=== PATIENT | female | born 1965 | race Caucasian/White ===

== ENCOUNTER 2022-10-27 14:22 | Outpatient (AMB) | payer OTHER, SELFPAY ==
--- NOTE | 2022-10-27 14:26 | A.OFFPC_ITS ---
Vital Signs 10/27/22 14:31 Height 5 ft 7 in Weight 262 lb 6 oz BMI 41.1 BP 160/88 H Blood Pressure Location Lt brachial Position Sitting Pulse 76 Pulse Source Pulse Oximeter Pulse Oximetry (%) 95 Oxygen Delivery Method Room Air Intake Visit Reasons: New Patient/ Concerns A1C Allergies Penicillins Allergy (Verified 10/27/22 14:32) Unknown Medication List - Last Reconciled 10/27/22 by EMIL Soares No Known Home Meds Tobacco use date assessed: 10/27/22 Dental Screening Dental Screen Date: 10/27/22 Did you have a dental visit in the last 12 months?: Yes Did you have a dental problem in the last 6 months where you did not have access to dental care?: No Was dental information given to patient?: Patient has dentist HPI New Patient/ Concerns A1C HPI Details New pt is here to establish care. Pt recently went in for surgery and was told she is most likely a diabetic. A1c in office today is 7.8. Due for microalbumin, will order. Denies polyuria, polydipsia, and neuropathy. Pt denies any signs and symptoms of hypoglycemia and does know how to correct it. Will start metformin 500mg daily. Will send meter and supplies, educated pt on bid testing. Eye exam is up to date. HTN: Blood pressure is elevated today. Will start losartan-hydrochlorothiazide 50-12.5mg. Denies chest pain, shortness of breath, headache, dizziness, and blurred vision. Will also start a statin. Will order further labs. Mammo is up to date according to pt. Colonoscopy is up to date according to pt, she goes every 5 years due to family hx. [facility] Surgical History (Updated 10/27/22 @ 14:55 by EMIL Soares) History of cholecystectomy History of total left hip replacement Hx of tonsillectomy Family History Mother Substance use disorder Mental health disorder Social History Housing: House Patient Tobacco Use Status: Never used Tobacco e-Cigarette/Vaping Use: Never Used Second Hand Smoke Exposure: No service: No Current occupational status: employed Current occupation: [employer] Current occupational exposures/hazards: No Cognitive needs: No Hearing needs: No Vision needs: No Questionnaire PHQ-9 Over the last 2 weeks, how often have you been bothered by any of the following problems? 1. Little interest or pleasure in doing things: more than half the days 2. Feeling down, depressed, or hopeless: several days 3. Trouble falling or staying asleep, or sleeping too much: more than half the days 4. Feeling tired or having little energy: nearly every day 5. Poor appetite or overeating: more than half the days 6. Feeling bad about yourself - or that you are a failure or have let yourself or your family down: several days 7. Trouble concentrating on things, such as reading the newspaper or watching television: not at all 8. Moving or speaking so slowly that other people could have noticed. Or the opposite - being so fidgety or restless that you have been moving around a lot more than usual: not at all 9. Thoughts that you would be better off or of hurting yourself in some way: not at all Total score: 11 Depression Screening Interpretation: Positive 80519 - PHQ-9 Billing: Yes Source: Developed by Drs. Ever Osborn, Earline Ibarra, Flaquito Schmitz and colleagues, with an educational jessica from [employer]. Thrive Questionnaire Date Thrive assessed: 10/27/22 I am a: Patient What is your living situation today?: I have a steady place to live Within the past 12 months, did the food you bought not last and you didn't have the money to get more?: Never true Within the past 12 months, did you worry whether your food would run out before you got money to buy more?: Never true Do you have trouble paying for medicines?: No Do you have trouble getting transportation to medical appointments?: No Do you have trouble paying your heating and electricity bill?: No Do you have trouble taking care of your child, family member or friend?: No Do you have trouble with day-to-day activities such as bathing, preparing meals, shopping, managing finances, etc.?: No Are you currently unemployed and looking for a job?: No Are you interested in more education?: No Currently or been in a relationship where the following occur: no concerns reported CON-7 AMB Questionnaire CON-7 Date CON - 7 assessed: 10/27/22 Feeling nervous, anxious, or on edge: 1 = Several days Not being able to stop or control worryin = Not at all Worrying too much about different things: 0 = Not at all Trouble relaxin = Not at all Being so restless that it is hard to sit still: 0 = Not at all Becoming easily annoyed or irritable: 2 = More than half the days Feeling afraid as if something awful might happen: 0 = Not at all Total CON-7 score (0-4 normal; 5-9 mild; 10-14 moderate; 15-21 severe): 3 Source: Developed by Drs. Ever Osborn, Earline Ibarra, Flaquito Schmitz and colleagues, with an educational jessica from [employer]. CON-7 Assessment Billing CON-7 Assessment Tool: CON-7 Assessment 11719 Review of Systems Const Reports as per HPI Physical exam (Primary Care) Vital Signs: Last Vital Signs Pulse 76 10/27/22 14:31 BP 160/88 H 10/27/22 14:31 Pulse Ox 95 10/27/22 14:31 Oxygen Delivery Method Room Air 10/27/22 14:31 BMI result Body Mass Index 41.1 Tobacco/Smoking Status: Tobacco use Status Tobacco use date assessed 10/27/22 10/27/22 14:43 Patient Tobacco Use Status Never used Tobacco 10/27/22 14:43 e-Cigarette/Vaping Use Never Used 10/27/22 14:43 PHQ-9: PHQ-9 Score PHQ-9: Total score 11 10/27/22 15:45 Depression Screening Interpretation: Positive Thrive Assessment: Date of Thrive Assessment Date Thrive assessed 10/27/22 10/27/22 15:45 Currently or been in a relationship where the following occur: no concerns reported Const General: cooperative Nutritional Appearance: obese morbidly obese Orientation/consciousness: patient oriented x3 Resp Effort & Inspection: normal respiratory effort Auscultation: clear to auscultation bilaterally Cardio Rate: regular rate Rhythm: regular rhythm Heart sounds: S1 normal heart sound present and S2 normal heart sound present Neuro General: patient oriented x3 Extrem Other: bilat feet: + sensation with use of monofilament Psych Appearance: grossly normal Mental Status: mental status grossly normal Speech and movement: Normal speech and movement present Affect: normal affect Attitude: cooperative Thought process: Normal thought process present Thought content: Normal thought content present Insight: Good insight present (Psych) Judgement: Good judgement present (Psych) Results AMB Hemoglobin A1c AMB Hemoglobin A1c 7.8 % Last Edit by Santa Rodriguez CMA on 10/27/22 15: 04 Results Reviewed Results Reviewed: Laboratory Last Values Hgb A1c (Clinic) 7.8 % (4.0-6.0) H 10/27/22 14:48 Assessment and Plan Assessment & Plan (1) Elevated blood sugar: Code(s): R73.9 - Hyperglycemia, unspecified Plan: Labs ordered (2) HTN (hypertension): Code(s): I10 - Essential (primary) hypertension Plan: Starting losartan-hctz (3) Newly diagnosed diabetes: Code(s): E11.9 - Type 2 diabetes mellitus without complications Plan: Labs ordered, starting metformin Plan The patient agreed to the use of a medical record technician for this encounter. Scribed for EMIL Yen by Sil Massey medical record technician, on 10/27/2022 at 14:45 EST. Orders: Orders Comprehensive [place]. Panel Fast Today R73.9 - Hyperglycemia, unspecified Lipid Panel Today R73.9 - Hyperglycemia, unspecified TSH reflex Free T4 Today R73.9 - Hyperglycemia, unspecified Complete Blood Count Auto Diff Today R73.9 - Hyperglycemia, unspecified UA CC w/rflx Micro + Cult Today R73.9 - Hyperglycemia, unspecified Microalbumin, Random (w Creat) Today E11.9 - Type 2 diabetes mellitus without complications AMB Hemoglobin A1c Today R73.9 - Hyperglycemia, unspecified Referrals Nurse Navigator Referral E11.9 - Type 2 diabetes mellitus without complications Medications: New losartan-hydrochlorothiazide 50-12.5 mg 1 tab PO DAILY 30 tabs 3RF 30 days atorvastatin 10 mg PO BEDTIME 30 tabs 3RF 30 days metformin 500 mg PO DAILY 30 tabs 3RF 30 days Coding Level of Care Code New Pt Level 3 (86066) Diagnoses Elevated blood sugar R73.9 HTN (hypertension) I10 Newly diagnosed diabetes E11.9 Additional Codes CON-7 Assessment Billing - CON-7 Assessment Tool: CON-7 Assessment 90983 ([id number])
[2022-10-27 14:31] VITALS: BP 160/88; PULSE 76; O2SAT 95; BMI 41.1
== END 2022-10-27 16:03 | disposition home or self-care (01) ==
PROVIDERS: Visit Provider Nurse Practitioner Family
DX: E11.65 Type 2 diabetes mellitus with hyperglycemia (principal); I10 Essential (primary) hypertension
CPT/HCPCS: 83036; 99203

== ENCOUNTER 2022-11-10 11:20 | Outpatient (REF) | payer OTHER, SELFPAY ==
[2022-11-10 13:25] LABS: MANUAL DIFF FLAG NO
[2022-11-10 13:41] LABS: Appearance Urine Clear; Color Urine Yellow; Glucose Urine UA Negative (Negative); Leukocyte Esterase Urine Negative (Negative); Nitrite Urine Negative (Negative); PH 5.5 (5.0-9.0); Specific Gravity - Urine 1.015 (1.005-1.025); Urine Blood Negative (Negative); Urine Ketones Negative (Negative); Urine Protein Negative (Neg-Trace)
[2022-11-10 13:48] LABS: Basophils Percent Auto 0.4 % (0-2); Eosinophils Absolute Auto 0.2 X10*3/uL (0.0-0.4); Hematocrit 45.8 % (37.0-47.0); Hemoglobin 16.2 g/dl (12.0-16.0); Imm Gran Abs Auto 0.02 X10*3/uL (0.00-0.03); Imm Gran Pct Auto 0.3 % (0.0-0.4); Lymphocytes Percent Auto 27.8 % (20-40); Mean Corpuscular HGB Conc 35.4 g/dl (31.0-35.0); Mean Corpuscular Volume 87.6 fL (80.0-98.0); Mean Platelet Volume 10.5 fL (9.4-12.3); Monocytes Absolute Auto 0.5 X10*3/uL (0.1-1.2); Monocytes Percent Auto 6.7 % (2-11); Neutrophils Absolute Auto 4.5 x10*3/uL (2.0-8.3); Neutrophils Percent Auto 61.8 % (45-73); Platelet Count 246 X10*3/uL (160-400); Red Blood Count 5.23 X10*6/uL (4.20-5.50); Red Cell Distribution Width 12.1 % (11.0-16.0); White Blood Count 7.3 X10*3/uL (4.8-10.8)
[2022-11-10 14:10] LABS: Alanine Aminotransferase 93 U/L (0-31); Albumin Level 4.7 g/dL (3.5-5.0); Alkaline Phosphatase 75 U/L (39-117); Anion Gap 12 (12-20); Aspartate Amino Transferase 71 U/L (5-31); Bilirubin Total 1.1 mg/dL (0.0-1.0); Blood Urea Nitrogen 12 mg/dL (9-16); Calcium 10.3 mg/dL (8.4-10.2); Carbon Dioxide 27 mmol/L (22-29); Chloride 104 mmol/L (96-108); Cholesterol 152 mg/dL; Estimated Glomerular Filt Rate > 60; Glucose Fasting 155 mg/dL (60-99); HDL Cholesterol 51 mg/dL; LDL Cholesterol Calculated 78 mg/dl; Potassium 4.4 mmol/L (3.3-5.1); Sodium 139 mmol/L (135-145); Total Protein 8.3 g/dL (6.5-8.0); Triglycerides 115 mg/dL
[2022-11-10 14:26] LABS: TSH reflex Free T4 2.41 uIU/mL (0.32-4.0)
[2022-11-10 14:32] LABS: Creatinine Urine 69.51 mg/dL; Microalbumin Urine < 5.0 mg/L
== END 2022-11-10 11:21 | disposition home or self-care (01) ==
LOC: HO.HMGCLDS 11:20
PROVIDERS: PCP Nurse Practitioner Family; Visit Provider Nurse Practitioner Family
DX: E11.65 Type 2 diabetes mellitus with hyperglycemia (principal)
CPT/HCPCS: 36415; 80053; 80061; 81003; 82043; 84443; 85025

== ENCOUNTER 2022-11-22 09:05 | Outpatient (REF) | payer OTHER, SELFPAY ==
--- NOTE | ~2022-11-22 | US_ITS ---
EXAMINATION: US ABDOMEN COMPLETE CLINICAL INFORMATION: Abnormal levels of other serum enzymes. COMPARISON: None available. TECHNIQUE: Real-time imaging of the abdominal viscera. Technically limited study secondary to bowel gas. FINDINGS: PANCREAS: Normal. ABDOMINAL AORTA: The proximal, mid, and distal segments are normal in caliber. INFERIOR VENA CAVA: Visualized portions are normal. LIVER: There is mild hepatomegaly, with a longitudinal span of 17.9 cm. The liver contour is normal. There is diffuse increased liver parenchymal echogenicity. Within the right lower lobe anteriorly, a 1.8 cm benign, simple cyst is seen. Within the left hepatic lobe, a 3.1 cm benign, simple cyst is seen. These require no imaging follow-up. There is no intrahepatic biliary duct dilatation seen. GALLBLADDER: Surgically absent. COMMON BILE DUCT: Normal in caliber post-cholecystectomy, measuring 0.8 cm in diameter. RIGHT KIDNEY: At the interpolar aspect, a 2 mm nonobstructing calculus is seen, with twinkle artifact. No hydronephrosis or focal parenchymal lesions. The kidney measures 11.4 cm in maximum dimension. LEFT KIDNEY: Normal. No hydronephrosis. No renal calculi or focal parenchymal lesions. The kidney measures 11.9 cm in maximum dimension. SPLEEN: Normal. The spleen measures 12.4 cm in maximum dimension. FREE FLUID: None. US/US abdomen complete IMPRESSION: 1. There is mild hepatomegaly. 2. There is generalized increase in hepatic echotexture, consistent with fatty infiltration or hepatocellular disease. Please correlate clinically. No focal hepatic mass or intrahepatic biliary dilatation is seen. 3. The gallbladder is surgically absent. 4. There is a 3 mm nonobstructing right renal calculus.
== END 2022-11-22 09:06 | disposition home or self-care (01) ==
LOC: HO.HMGCX 09:05
PROVIDERS: PCP Nurse Practitioner Family; Visit Provider Nurse Practitioner Family
DX: R74.8 Abnormal levels of other serum enzymes (principal)
CPT/HCPCS: 76700

== ENCOUNTER 2023-02-27 15:40 | Outpatient (AMB) | payer OTHER, SELFPAY ==
[2023-02-27 15:47] VITALS: BP 120/80; PULSE 74; O2SAT 97; BMI 39.8
--- NOTE | 2023-02-27 15:47 | A.OFFPC_ITS ---
Vital Signs 02/27/23 15:47 Height 5 ft 7 in Weight 254 lb BMI 39.8 BP 120/80 Blood Pressure Location Lt brachial Position Sitting Pulse 74 Pulse Source Pulse Oximeter Pulse Oximetry (%) 97 Oxygen Delivery Method Room Air Intake Visit Reasons: 4 Month follow up Intake Note: Pt is here today for her 4 months f/u Allergies Penicillins Allergy (Verified 02/27/23 15:49) Unknown Medication List - Last Reconciled 02/27/23 by EMIL Soares Alcohol Prep Pads (alcohol swabs) 1 topically TID; NS atorvastatin 10 mg PO BEDTIME 30 days FreeStyle Lancets (lancets) TID testing NS FreeStyle Lite Meter (blood-glucose meter) test Tid NS FreeStyle Lite Strips (blood sugar diagnostic) test TID NS losartan-hydrochlorothiazide 50-12.5 mg 1 tab PO DAILY 30 days metformin 500 mg PO BID 30 days Tobacco use date assessed: 02/27/23 Dental Screening Dental Screen Date: 02/27/23 Did you have a dental visit in the last 12 months?: Yes Did you have a dental problem in the last 6 months where you did not have access to dental care?: No Was dental information given to patient?: Patient has dentist HPI 4 Month follow up HPI Details Pt is a diabetic, on an ARB and a statin. A1C in office today is 7.3. Microalbumin is up to date. Denies polyuria, polydipsia, and neuropathy. Pt denies any signs and symptoms of hypoglycemia and does know how to correct it. Will increase metformin from 500mg daily to 500mg bid. Eye exam is up to date. [facility] Surgical History Hx of tonsillectomy History of cholecystectomy History of total left hip replacement Family History Mother Substance use disorder Mental health disorder Social History Housing: House Patient Tobacco Use Status: Never used Tobacco e-Cigarette/Vaping Use: Never Used Second Hand Smoke Exposure: No service: No Current occupational status: employed Current occupation: [employer] Current occupational exposures/hazards: No Cognitive needs: No Hearing needs: No Vision needs: Yes Questionnaire Thrive Questionnaire Date Thrive assessed: 10/27/22 CON-7 AMB Questionnaire CON-7 Date CON - 7 assessed: 10/27/22 Source: Developed by Drs. Ever Osborn, Earline Ibarra, Flaquito Schmitz and colleagues, with an educational jessica from [employer]. Review of Systems Const Reports as per HPI Physical exam (Primary Care) Vital Signs: Last Vital Signs Pulse 74 02/27/23 15:47 BP 120/80 02/27/23 15:47 Pulse Ox 97 02/27/23 15:47 Oxygen Delivery Method Room Air 02/27/23 15:47 BMI result Body Mass Index 39.8 Tobacco/Smoking Status: Tobacco use Status Tobacco use date assessed 02/27/23 02/27/23 15:49 Patient Tobacco Use Status Never used Tobacco 02/27/23 15:48 e-Cigarette/Vaping Use Never Used 02/27/23 15:48 Thrive Assessment: Date of Thrive Assessment Date Thrive assessed 10/27/22 02/27/23 15:48 Const General: cooperative Nutritional Appearance: obese Orientation/consciousness: patient oriented x3 Resp Effort & Inspection: normal respiratory effort Auscultation: clear to auscultation bilaterally Cardio Rate: regular rate Rhythm: regular rhythm Heart sounds: S1 normal heart sound present and S2 normal heart sound present Neuro General: patient oriented x3 Extrem Other: bilat feet: + sensation with use of monofilament, feet intact Psych Appearance: grossly normal Mental Status: mental status grossly normal Speech and movement: Normal speech and movement present Affect: normal affect Attitude: cooperative Thought process: Normal thought process present Thought content: Normal thought content present Insight: Good insight present (Psych) Judgement: Good judgement present (Psych) Results AMB Hemoglobin A1c AMB Hemoglobin A1c 7.3 % Last Edit by Shasta Diaz CMA on 02/27/23 15:55 Immunizations pneumoc 20-joseph conj-dip cr(PF) 0.5 mL IM syringe Performing Provider: EMIL Soares Performing Location: [facility] Administered by: Shasta Diaz CMA on 02/27/23 16:22 Dose Route Admin Location Dispensed Lot Number Expiration Date NDC Acetylene Operator 0.5 mL IM Left Deltoid 0.5 mL [id number] 11/25/23 7377-8523-07 [employer] VIS Given Date VIS Provided VIS Publication Date 02/27/23 Single Vaccine 21 Eligibility Eligibility Date Funding Source Not VFC Eligible 02/27/23 Private Results Reviewed Results Reviewed: Laboratory Last Values Hgb A1c (Clinic) 7.3 % (4.0-6.0) H 02/27/23 15:48 Assessment and Plan Assessment & Plan (1) Diabetes: Code(s): E11.9 - Type 2 diabetes mellitus without complications Plan The patient agreed to the use of a medical radiation therapist for this encounter. Scribed for CLAIRE Yen- by Sil Massey medical radiation therapist, on 02/27/2023 at 16:05 EST. Orders: Orders AMB Hemoglobin A1c Today E11.9 - Type 2 diabetes mellitus without complications Complete Blood Count Auto Diff Today E11.9 - Type 2 diabetes mellitus without complications Comprehensive [place]. Panel Fast Today E11.9 - Type 2 diabetes mellitus without complications TSH reflex Free T4 Today E11.9 - Type 2 diabetes mellitus without complications UA CC w/rflx Micro + Cult Today E11.9 - Type 2 diabetes mellitus without complications Lipid Panel Today E11.9 - Type 2 diabetes mellitus without complications Pneumococcal 20 Immunization Today Z23 - Encounter for immunization Medications: Changed From metformin 500 mg PO DAILY 30 days 30 tabs 3RF To metformin 500 mg PO BID 60 tabs 3RF 30 days Coding Level of Care Code Est Pt Level 3 (80757) Diagnoses Diabetes E11.9
== END 2023-02-27 16:35 | disposition home or self-care (01) ==
PROVIDERS: PCP Nurse Practitioner Family; Visit Provider Nurse Practitioner Family
DX: Z23 Encounter for immunization (principal); E11.9 Type 2 diabetes mellitus without complications
CPT/HCPCS: 83036; 90471; 90677; 99213

== ENCOUNTER 2023-06-05 14:06 | Outpatient (AMB) | payer OTHER, SELFPAY ==
[2023-06-05 14:08] VITALS: BP 140/80; PULSE 83; O2SAT 96; BMI 39.3
--- NOTE | 2023-06-05 14:08 | A.OFFPC_ITS ---
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 [employer] Processing Required: No Accompanied by: Self / Same As Patient Allergies Penicillins Allergy (Verified 06/05/23 14:08) Unknown Medication List - Last Reconciled 06/05/23 by EMIL Soares Alcohol Prep Pads (alcohol swabs) 1 topically TID; NS atorvastatin 10 mg PO BEDTIME FreeStyle Lancets (lancets) TID testing NS FreeStyle Lite Meter (blood-glucose meter) test Tid NS FreeStyle Lite Strips (blood sugar diagnostic) test TID NS losartan-hydrochlorothiazide 50-12.5 mg 1 tab PO DAILY metformin 500 mg PO BID 30 days Tobacco use date assessed: 06/05/23 Dental Screening Dental Screen Date: 06/05/23 Did you have a dental visit in the last 12 months?: Yes Did you have a dental problem in the last 6 months where you did not have access to dental care?: No Was dental information given to patient?: Patient has dentist HPI 3 month fu HPI Details Pt is a diabetic, on an ARB and a statin. A1C in office today is 7.4. Microalbumin is up to date. Denies polyuria, polydipsia, and neuropathy. Pt denies any signs and symptoms of hypoglycemia and does know how to correct it. Pt reports that her blood sugar has been ranging from 80s-140s. Eye exam is up to date. Will start ozempic 0.25mg. Pt will also work on her diet. PFSH Surgical History Hx of tonsillectomy History of cholecystectomy History of total left hip replacement Family History Mother Substance use disorder Mental health disorder Social History Housing: House Patient Tobacco Use Status: Never used Tobacco e-Cigarette/Vaping Use: Never Used Second Hand Smoke Exposure: No service: No Current occupational status: employed Current occupation: [employer] Current occupational exposures/hazards: No Cognitive needs: No Hearing needs: No Vision needs: Yes Questionnaire Thrive Questionnaire Date Thrive assessed: 10/27/22 CON-7 AMB Questionnaire CON-7 Date CON - 7 assessed: 10/27/22 Source: Developed by Drs. Ever Osborn, Earline Ibarra, Flaquito Schmitz and colleagues, with an educational jessica from [employer]. Review of Systems Const Reports as per HPI Physical exam (Primary Care) Vital Signs: Last Vital Signs Pulse 83 06/05/23 14:08 BP 132/80 06/05/23 14:33 Pulse Ox 96 06/05/23 14:08 BMI result Body Mass Index 39.3 Tobacco/Smoking Status: Tobacco use Status Tobacco use date assessed 06/05/23 06/05/23 14:18 Patient Tobacco Use Status Never used Tobacco 06/05/23 14:10 e-Cigarette/Vaping Use Never Used 06/05/23 14:10 Thrive Assessment: Date of Thrive Assessment Date Thrive assessed 10/27/22 06/05/23 14:10 Const General: cooperative Nutritional Appearance: obese Orientation/consciousness: patient oriented x3 Resp Effort & Inspection: normal respiratory effort Auscultation: clear to auscultation bilaterally Cardio Rate: regular rate Rhythm: regular rhythm Heart sounds: S1 normal heart sound present and S2 normal heart sound present Neuro General: patient oriented x3 Extrem Other: bilat feet: + sensation with use of monofilament, feet intact Psych Appearance: grossly normal Mental Status: mental status grossly normal Speech and movement: Normal speech and movement present Affect: normal affect Attitude: cooperative Thought process: Normal thought process present Thought content: Normal thought content present Insight: Good insight present (Psych) Judgement: Good judgement present (Psych) Results AMB Hemoglobin A1c AMB Hemoglobin A1c 7.4 % Last Edit by Paul Craven CMA on 06/05/23 14: 46 Results Reviewed Results Reviewed: Laboratory Last Values Hgb A1c (Clinic) 7.4 % (4.0-6.0) H 06/05/23 14:46 Assessment and Plan Assessment & Plan (1) Diabetes: Code(s): E11.9 - Type 2 diabetes mellitus without complications Plan: Starting ozempic Plan The patient agreed to the use of a medical claims specialist for this encounter. Scribed for EMIL eYn by Sil Massey medical claims specialist, on 06/05/2023 at 14:25 EST. Orders: Orders AMB Hemoglobin A1c Today Z13.9 - Encounter for screening, unspecified Medications: New semaglutide (Ozempic) for 4 weeks 0.25 mg (0.368 mL) subcut QWEEK 3 mL 2RF Coding Level of Care Code Est Pt Level 3 (06015) Diagnoses Diabetes E11.9
[2023-06-05 14:33] VITALS: BP 132/80
== END 2023-06-05 14:52 | disposition home or self-care (01) ==
PROVIDERS: PCP Nurse Practitioner Family; Visit Provider Nurse Practitioner Family
DX: E11.9 Type 2 diabetes mellitus without complications (principal)
CPT/HCPCS: 83036; 99213

== ENCOUNTER 2023-10-18 14:16 | Outpatient (AMB) | payer OTHER, SELFPAY ==
--- NOTE | 2023-10-18 14:24 | A.OFFPC_ITS ---
Vital Signs 10/18/23 14:28 Height 5 ft 7 in Weight 252 lb BMI 39.5 BP 120/84 Blood Pressure Location Rt brachial Position Sitting Pulse 82 Pulse Source Pulse Oximeter Pulse Oximetry (%) 98 Oxygen Delivery Method Room Air Intake Visit Reasons: Follow up DM Intake Note: Patient here for DM f/u. Allergies Penicillins Allergy (Verified 10/18/23 14:29) Unknown Tobacco use date assessed: 06/05/23 Dental Screening Dental Screen Date: 06/05/23 HPI Follow up DM HPI Details Pt is a diabetic, on an ARB and a statin. A1C in office today is 8.4. Due for microalbumin next month. Denies polyuria, polydipsia, and neuropathy. Pt denies any signs and symptoms of hypoglycemia and does know how to correct it. Pt reports that she has not been taking her metformin and ozempic due to anxiety about these meds. Will have pt start metformin 500mg daily, then to bid, then start ozempic. Went over use of each med, side effects. Pt seemed much more comfortable after discussion about meds. Eye exam is up to date. FOR[facility]LY [facility], [facility] Surgical History Hx of tonsillectomy History of cholecystectomy History of total left hip replacement Family History Mother Substance use disorder Mental health disorder Social History Housing: House Patient Tobacco Use Status: Never used Tobacco e-Cigarette/Vaping Use: Never Used Second Hand Smoke Exposure: No service: No Current occupational status: employed Current occupation: [employer] Current occupational exposures/hazards: No Cognitive needs: No Hearing needs: No Vision needs: Yes Questionnaire PHQ-9 Over the last 2 weeks, how often have you been bothered by any of the following problems? 1. Little interest or pleasure in doing things: not at all 2. Feeling down, depressed, or hopeless: not at all 3. Trouble falling or staying asleep, or sleeping too much: not at all 4. Feeling tired or having little energy: not at all 5. Poor appetite or overeating: not at all 6. Feeling bad about yourself - or that you are a failure or have let yourself or your family down: not at all 7. Trouble concentrating on things, such as reading the newspaper or watching television: not at all 8. Moving or speaking so slowly that other people could have noticed. Or the opposite - being so fidgety or restless that you have been moving around a lot more than usual: not at all 9. Thoughts that you would be better off or of hurting yourself in some way: not at all Total score: 0 Depression Screening Interpretation: Negative Depression Screening Done: Yes 72300 - PHQ-9 Billing: Yes Source: Developed by Drs. Ever Osborn, Earline Ibarra, Flaquito Schmitz and colleagues, with an educational jessica from [employer]. Thrive Questionnaire Date Thrive assessed: 10/18/23 I am a: Patient What is your living situation today?: I have a steady place to live Within the past 12 months, did the food you bought not last and you didn't have the money to get more?: Never true Within the past 12 months, did you worry whether your food would run out before you got money to buy more?: Never true Do you have trouble paying for medicines?: No Do you have trouble getting transportation to medical appointments?: No Do you have trouble paying your heating and electricity bill?: No Do you have trouble taking care of your child, family member or friend?: No Do you have trouble with day-to-day activities such as bathing, preparing meals, shopping, managing finances, etc.?: No Are you currently unemployed and looking for a job?: No Are you interested in more education?: No Please select the resources that you would like help with: Housing/Half-Way Currently or been in a relationship where the following occur: No concerns reported THRIVE Score: 0 AUDIT C Alcohol Use Questionnaire (AUDIT-C) 1. How often do you have a drink containing alcohol?: 2-4 times a month 2. How many drinks containing alcohol do you have on a typical day when you are drinking?: 1 or 2 3. How often do you have six or more drinks on one occasion?: Never Total Score: 2 CON-7 AMB Questionnaire CON-7 Date CON - 7 assessed: 10/18/23 Feeling nervous, anxious, or on edge: 0 = Not at all Not being able to stop or control worryin = Not at all Worrying too much about different things: 0 = Not at all Trouble relaxin = Not at all Being so restless that it is hard to sit still: 0 = Not at all Becoming easily annoyed or irritable: 0 = Not at all Feeling afraid as if something awful might happen: 0 = Not at all Total CON-7 score (0-4 normal; 5-9 mild; 10-14 moderate; 15-21 severe): 0 Source: Developed by Drs. Ever Osborn, Earline Ibarra, Flaquito Schmitz and colleagues, with an educational jessica from [employer]. CON-7 Assessment Billing CON-7 Assessment Tool: CON-7 Assessment 14378 Review of Systems Const Reports as per HPI Physical exam (Primary Care) Vital Signs: Last Vital Signs Pulse 82 10/18/23 14:28 BP 120/84 10/18/23 14:28 Pulse Ox 98 10/18/23 14:28 Oxygen Delivery Method Room Air 10/18/23 14:28 BMI result Body Mass Index 39.5 Tobacco/Smoking Status: Tobacco use Status Tobacco use date assessed 06/05/23 10/18/23 14:24 Patient Tobacco Use Status Never used Tobacco 10/18/23 14:24 e-Cigarette/Vaping Use Never Used 10/18/23 14:24 PHQ-9: PHQ-9 Score PHQ-9: Total score 0 10/18/23 15:03 Depression Screening Interpretation: Negative Thrive Assessment: Date of Thrive Assessment Date Thrive assessed 10/18/23 10/18/23 14:31 Currently or been in a relationship where the following occur: No concerns reported Const General: cooperative Nutritional Appearance: obese Orientation/consciousness: patient oriented x3 Resp Effort & Inspection: normal respiratory effort Auscultation: clear to auscultation bilaterally Cardio Rate: regular rate Rhythm: regular rhythm Heart sounds: S1 normal heart sound present and S2 normal heart sound present Neuro General: patient oriented x3 Extrem Other: bilat feet: + sensation with use of monofilament, feet intact Psych Appearance: grossly normal Mental Status: mental status grossly normal Speech and movement: Normal speech and movement present Affect: normal affect Attitude: cooperative Thought process: Normal thought process present Thought content: Normal thought content present Insight: Good insight present (Psych) Judgement: Good judgement present (Psych) Assessment and Plan Assessment & Plan (1) Diabetes: Code(s): E11.9 - Type 2 diabetes mellitus without complications Plan: went over use of meds, will cont to monitor Plan The patient agreed to the use of a medical records manager for this encounter. Scribed for EMIL Yen by Sil Massey medical records manager, on 10/18/2023 at 15:00 EST. Orders: Orders AMB Hemoglobin A1c Today E11.9 - Type 2 diabetes mellitus without complications Coding Level of Care Code Est Pt Level 3 (25869) Diagnoses Diabetes E11.9 Additional Codes CON-7 Assessment Billing - CON-7 Assessment Tool: CON-7 Assessment 32019 ([id number])
[2023-10-18 14:28] VITALS: BP 120/84; PULSE 82; O2SAT 98; BMI 39.5
== END 2023-10-18 15:18 | disposition home or self-care (01) ==
PROVIDERS: PCP Nurse Practitioner Family; Visit Provider Nurse Practitioner Family
DX: E11.9 Type 2 diabetes mellitus without complications (principal)
CPT/HCPCS: 83036; 99213

== ENCOUNTER 2024-08-21 08:19 | Outpatient (AMB) | payer OTHER, SELFPAY ==
[2024-08-21 08:22] VITALS: BP 152/90; PULSE 92; RESP 16; TEMP 36.6; O2SAT 97; BMI 39.2
--- NOTE | 2024-08-21 08:22 | A.OFFPC_ITS ---
Vital Signs 08/21/24 08:22 Height 5 ft 7 in Weight 250 lb BMI 39.2 BP 152/90 H Blood Pressure Location Lt brachial Position Sitting Respiration 16 Pulse 92 Pulse Source Pulse Oximeter Temp 97.9 F Temp Source Oral Pulse Oximetry (%) 97 Oxygen Delivery Method Room Air Intake Visit Reasons: dm follow up Intake Note: Pt is here today for her DM Allergies Penicillins Allergy (Verified 08/21/24 08:25) Unknown Medication List - Last Reconciled 08/21/24 by CLAIRE Soares- Alcohol Prep Pads (alcohol swabs) 1 topically TID; NS atorvastatin 10 mg PO BEDTIME FreeStyle Lancets (lancets) TID testing NS FreeStyle Lite Meter (blood-glucose meter) test Tid NS FreeStyle Lite Strips (blood sugar diagnostic) test TID NS losartan-hydrochlorothiazide 50-12.5 mg 1 tab PO DAILY tirzepatide (Mounjaro) 2.5 mg (0.5 mL) subcut QWEEK Tobacco use date assessed: 08/21/24 Dental Screening Dental Screen Date: 08/21/24 Did you have a dental visit in the last 12 months?: Yes Did you have a dental problem in the last 6 months where you did not have access to dental care?: No Was dental information given to patient?: Patient has dentist HPI dm follow up HPI Details Chief Complaint Patient presents with discontinuation of medications and new lumps in the forearm. History of Present Illness The patient is a 58-year-old female presenting with discontinuation of medications for essential hypertension, hyperlipidemia, and type 2 diabetes mellitus due to adverse effects. She has not taken her medications for several months, leading to poor glycemic control with an A1c of 8.3. The patient also reports new musculoskeletal symptoms, including non-tender lumps in the forearms and swelling in the fingers, with a suspected ganglion cyst on the left wrist. S he denies systemic symptoms such as fever or neuropathy. Health maintenance is generally up to date with scheduled screenings. Social History - Reports no specific social determinant s of health were discussed during the visit. Health Maintenance - Mammogram is up to date. - Eye exam is up to date. - Colonoscopy is scheduled for next baljit h. Review of Systems - General: Denies fever, chills, cp, sob , blurred vision, REBOLLAR - Musculoskeletal: Reports swelling and lumps in forearms, swelling in fingers. - Neurological: Reports weird snapping sensations in temples. Denies neuropathy. Physical Exam General: Cooperative, healthy appearing, comfortable, no acute distress and well developed, obese Orientation: Patient oriented x3 Limitations: No limitations Head: Normal to inspection Ears: Hearing grossly normal bilaterally Nose: Normal external nose present Face and sinus: Normal facial exam Eyes: Appearance normal, both eyes and all related structures Neck: Normal visual inspection and Yes full ROM Respiratory: Normal respiratory effort and able to speak in complete sentences. Clear to auscultation bilaterally Cardiovascular: Regular rate and rhythm. Normal S1 and S2 GI: Normal to inspection. Soft to palpation and nontender Skin: No rashes or lesions noted Neuro: Patient oriented x3, feet were intact bilat, + sensation with use of monofilament Extremities: Swelling to proximal left middle finger and right second finger, proximal aspect, with SQ lumps throughout distal forearm bilaterally, more on the left than right. Not tender with touch. Possible ganglion cyst to left wrist dorsal aspect medial aspect. Results - Labs: Hemoglobin A1c is 8.3. - Imaging: Ultrasound of the forearms an d wrist planned to evaluate lumps and suspected ganglion cyst. Plan I plan to address the patient's chronic conditions by initiating a GLP-1 agonist to improve glycemic control and potentially aid in weight loss. The patient will undergo ultrasound imaging to evaluate the lumps in her forearms and the suspected ganglion cyst. I will monitor the patient's response to medication changes and ensure the continuation of regular health maintenance screenings. The patient is advised to adhere to her scheduled colonoscopy and maintain regular follow-ups. Discussion Notes I discussed with the patient the importance of restarting her medications to manage her chronic conditions effectively. We explored the possibility of initiating a GLP-1 agonist, discussing its benefits in controlling blood sugar and potential weight loss. I informed her of the side effects and the lack of association with pancreatic or medullary thyroid cancer. We agreed to proceed with ultrasound imaging to evaluate the lumps on her forearms and the suspected ganglion cyst ? lipomas. I emphasized the necessity of regular follow-ups to monitor her health status and the adherence to screening schedules. Patient Instructions - Restart medications for blood pressure , cholesterol, and diabetes as discussed. - Schedule and attend ultrasound imaging for the forearms and wrist. - Follow up on the colonoscopy appointme nt. - Report any new symptoms or concerns im mediately. - Adhere to scheduled follow-ups and hea lth maintenance screenings. PFSH Surgical History Hx of tonsillectomy History of cholecystectomy History of total left hip replacement Family History Mother Substance use disorder Mental health disorder Social History Housing: House Patient Tobacco Use Status: Never used Tobacco e-Cigarette/Vaping Use: Never Used Second Hand Smoke Exposure: No service: No Current occupational status: employed Current occupation: [employer] Current occupational exposures/hazards: No Cognitive needs: No Hearing needs: No Vision needs: Yes Questionnaire PHQ-9 Over the last 2 weeks, how often have you been bothered by any of the following problems? 1. Little interest or pleasure in doing things: not at all 2. Feeling down, depressed, or hopeless: not at all 3. Trouble falling or staying asleep, or sleeping too much: not at all 4. Feeling tired or having little energy: not at all 5. Poor appetite or overeating: not at all 6. Feeling bad about yourself - or that you are a failure or have let yourself or your family down: not at all 7. Trouble concentrating on things, such as reading the newspaper or watching television: not at all 8. Moving or speaking so slowly that other people could have noticed. Or the opposite - being so fidgety or restless that you have been moving around a lot more than usual: not at all 9. Thoughts that you would be better off or of hurting yourself in some way: not at all Total score: 0 Depression Screening Interpretation: Negative Depression Screening Done: Yes 78635 - PHQ-9 Billing: Yes Source: Developed by Drs. Ever Osborn, Earline Ibarra, Flaquito Schmitz and colleagues, with an educational jessica from [employer]. Thrive Questionnaire Date Thrive assessed: 10/18/23 I am a: Patient What is your living situation today?: I have a steady place to live Within the past 12 months, did the food you bought not last and you didn't have the money to get more?: Never true Within the past 12 months, did you worry whether your food would run out before you got money to buy more?: Never true Do you have trouble paying for medicines?: No Do you have trouble getting transportation to medical appointments?: No Do you have trouble paying your heating and electricity bill?: No Do you have trouble taking care of your child, family member or friend?: No Do you have trouble with day-to-day activities such as bathing, preparing meals, shopping, managing finances, etc.?: No Are you currently unemployed and looking for a job?: No Are you interested in more education?: No Please select the resources that you would like help with: None Currently or been in a relationship where the following occur: No concerns reported THRIVE Score: 0 AUDIT C Alcohol Use Questionnaire (AUDIT-C) 1. How often do you have a drink containing alcohol?: Monthly or less 2. How many drinks containing alcohol do you have on a typical day when you are drinking?: 1 or 2 3. How often do you have six or more drinks on one occasion?: Never Total Score: 1 CON-7 AMB Questionnaire CON-7 Date CON - 7 assessed: 10/18/23 Feeling nervous, anxious, or on edge: 0 = Not at all Not being able to stop or control worryin = Not at all Worrying too much about different things: 0 = Not at all Trouble relaxin = Not at all Being so restless that it is hard to sit still: 0 = Not at all Becoming easily annoyed or irritable: 0 = Not at all Feeling afraid as if something awful might happen: 0 = Not at all Total CON-7 score (0-4 normal; 5-9 mild; 10-14 moderate; 15-21 severe): 0 Source: Developed by Drs. Ever Osborn, Earline Ibarra, Flaquito Schmitz and colleagues, with an educational jessica from [employer]. Physical exam (Primary Care) Vital Signs: Last Vital Signs Temp 97.9 F 08/21/24 08:22 Pulse 92 08/21/24 08:22 BP 152/90 H 08/21/24 08:22 Pulse Ox 97 08/21/24 08:22 Oxygen Delivery Method Room Air 05/28/25 08:22 BMI result Body Mass Index 39.2 Tobacco/Smoking Status: Tobacco use Status Tobacco use date assessed 08/21/24 08/21/24 08:32 Patient Tobacco Use Status Never used Tobacco 08/21/24 08:22 e-Cigarette/Vaping Use Never Used 08/21/24 08:22 PHQ-9: PHQ-9 Score PHQ-9: Total score 0 08/21/24 08:33 Depression Screening Interpretation: Negative Thrive Assessment: Date of Thrive Assessment Date Thrive assessed 10/18/23 08/21/24 08:22 Currently or been in a relationship where the following occur: No concerns reported Results AMB Hemoglobin A1c AMB Hemoglobin A1c 8.3 % Last Edit by Paul Craven CMA on 08/21/24 08: 42 Coding Level of Care Code Est Pt Level 4 (58307) Diagnoses Diabetes E11.9 Mass of both forearms R22.33 Additional Codes PHQ-9 - 18627 - PHQ-9 Billing: Yes ([id number]) Assessment & Plan Assessment & Plan (1) Diabetes: Code(s): E11.9 - Type 2 diabetes mellitus without complications Category: Medical (2) Mass of both forearms: Comment: ? lipoma vs ganglion Code(s): R22.33 - Localized swelling, mass and lump, upper limb, bilateral Category: Medical Plan . Orders: Orders Comprehensive Hinkle. Panel Fast Today E11.9 - Type 2 diabetes mellitus without c omplications Lipid Panel Today E11.9 - Type 2 diabetes mellitus without complications Microalbumin, Random (w Creat) Today E11.9 - Type 2 diabetes mellitus without complications US Extremity Nonvas Limited LT Today R22.33 - Localized swelling, mass and lump, upper limb, bilateral US Extremity Nonvas Limited RT Today R22.33 - Localized swelling, mass and lump, upper limb, bilateral Complete Blood Count Auto Diff Today E11.9 - Type 2 diabetes mellitus without complications TSH reflex Free T4 Today E11.9 - Type 2 diabetes mellitus without complications UA CC w/rflx Micro + Cult Today E11.9 - Type 2 diabetes mellitus without complications AMB Hemoglobin A1c Today E11.9 - Type 2 diabetes mellitus without complications Medications: New tirzepatide (Mounjaro) for 4 weeks 2.5 mg (0.5 mL) subcut QWEEK 2 mL 0RF Refilled atorvastatin 10 mg PO BEDTIME 90 tabs 1RF losartan-hydrochlorothiazide 50-12.5 mg 1 tab PO DAILY 90 tabs 1RF Discontinued metformin Discontinued Reason: Doctor's Order 500 mg PO BID 30 days 60 tabs 3RF semaglutide (Ozempic) for 4 weeks Discontinued Reason: Doctor's Order 0.25 mg (0.368 mL) subcut QWEEK 3 mL 2RF
--- OUTSIDE RECORDS SUMMARY | 2024-08-21 08:33 | XMS_ITS | Clinical Summary ---
Author Organization [facility] ity Address [id number] [place] [id number] Care Team Providers Care Hot Roller Name Role Phone Bernard-Dax Karyn Jose J RENEE Primary Care Provider [phone] Social History Tobacco Use Types Packs/Day Years Used Date Smoking Tobacco: Never Assessed Comments Unknown Sex and Gender Information Value Date Recorded Sex Assigned at Female 08/02/2024 1:02 PM EDT Legal Sex Female 10:09 PM EST Gender Identity Female 08/02/2024 1:02 PM EDT Sexual Orientation Not on file Plan of Treatment Upcoming Encounters Date Type Department Care Team (Late st Contact Info) Description 09/02/2024 10:10 AM EDT Office Visit Gastroenterology - [address] [facility] [address] [place] [phone] Lacie Gonzales, SHYAM [address] [facility] [address] [place] [address] [place] [phone] Health Maintenance Due Date Last Done Comments Breast Cancer Screening 1966 DTaP,Tdap,and Td Vaccines (1 - Tdap) 1985 Hepatitis B Vaccines (1 of 3 - 19+ 3-dose series) 1985 Cervical Cancer Screening: P ap Smear 09/16/1987 Pneumococcal Vaccine: 50+ Ye ars (1 of 1 - PCV) 2016 Zoster Vaccines (1 of 2) 2016 COVID-19 Vaccine ( - 2023-2 5 season) 2023 Colorectal Cancer Screening: Colonoscopy 08/02/2024 Depression Screening 08/02/2024 HIV Screening 08/02/2024 Hepatitis C Screening 08/02/2024 Social Influencers of Health Screening 08/02/2024 Influenza Vaccine (Season Ended) 2024 HIB Vaccines Aged Out No longer eligi ble based on patient's age to complete this topic HPV Vaccines Aged Out No longer eligi ble based on patient's age to complete this topic Hepatitis A Vaccines Aged Out No long er eligible based on patient's age to complete this topic IPV Vaccines Aged Out No longer eligi ble based on patient's age to complete this topic MMR Vaccines Aged Out No longer eligi ble based on patient's age to complete this topic Meningococcal ACWY Vaccine Aged Out N o longer eligible based on patient's age to complete this topic Meningococcal B Vaccine Aged Out No l onger eligible based on patient's age to complete this topic Pneumococcal Vaccine: Pediat rics (0 to 5 Years) and At-Risk Patients (6 to 64 Years) Aged Out No longer eligible b ased on patient's age to complete this topic RSV Immunization Patients Un davida 20 months Aged Out No longer eligible b ased on patient's age to complete this topic Varicella Vaccines Aged Out No longer eligible based on patient's age to complete [place] [id number] [facility] Care Teams Hot Roller Relationship Specialty Start Date End Date Karyn Arreaga DO [facility] [address] [place] [id number] PCP - General Internal Medicine 06/13/16
== END 2024-08-21 09:08 | disposition home or self-care (01) ==
LOC: HO.HMCC 08:20
PROVIDERS: PCP Nurse Practitioner Family; Visit Provider Nurse Practitioner Family
DX: E11.9 Type 2 diabetes mellitus without complications (principal); R22.33 Localized swelling, mass and lump, upper limb, bilateral

== ENCOUNTER → 2024-08-21 08:19 | Outpatient (BNVA) | payer OTHER, SELFPAY | PROVIDERS: PCP Nurse Practitioner Family; Visit Provider Nurse Practitioner Family | DX: E11.9 Type 2 diabetes mellitus without complications (principal); R22.33 Localized swelling, mass and lump, upper limb, bilateral; I10 Essential (primary) hypertension; E78.5 Hyperlipidemia, unspecified; Z13.31 Encounter for screening for depression | CPT/HCPCS: 83036; 96127 ==

== ENCOUNTER 2024-12-24 08:56 | Outpatient (REF) | payer OTHER, SELFPAY ==
--- OUTSIDE RECORDS SUMMARY | 2024-12-24 09:32 | XMS_ITS | Clinical Summary ---
Author Organization [facility] Address [address] [place] [phone] Phone Care Team Providers Care Ceramics Machine Operator Name Role Phone Diane Licea MD Primary Care Provider Allergies Active Allergy Reactions Criticality Noted Date Comments Penicillin G Benzathin,Procain 04/30 As a child Medications No known medications Active Problems Problem Noted Date Diagnosed Date Screening for cervical cancer 08/26/2020 IUD (intrauterine device) in place 11/25/2013 IUD (intrauterine device) in place 11/25/2013 Assessment & Plan (08/26/2020 10:15 AM EDT): Pt reluctant to have IUD removed. Doesn't feel prepared. Reassured pt there is usually only brief discomfort. No s/sx of menopause. Pt concerned she may start to menstruate if removed. Option for new IUD reviewed should that be the case. Pt prefers to continue with current IUD. FSH level option discussed with pt. She would like to have drawn. Limitations of the test reviewed as level may wax/wane in perimenopause. 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 Not on tyra e 07/22/2022 Are you concerned about learning? Not on file 07/22/2022 No 07/22/2022 No 07/22/2022 Digital Access Answer Date Recorded No 08/20/2022 No 08/20/2022 Reliable internet access at home? Not on file 08/20/2022 Device with a working camera? Not on file Comments No Sex and Gender Information Value Date Recorded Sex Assigned at Not on file Legal Sex Female 1:13 PM EDT Gender Identity Not on file Sexual Orientation Not on file Occupation Industry Job Start Date Job End Date [employer] Not on file Not on file Not on fi le Last Filed Vital Signs Vital Sign Reading Time Taken Comments Blood Pressure 112/74 08/26/2020 9:46 AM EDT Pulse - - Temperature - - Respiratory Rate - - Oxygen Saturation - - Inhaled Oxygen Concentration - - Weight 117.2 kg (258 lb 6.4 oz) 08/26/2020 9:46 AM EDT Height 170.2 cm (5' 7 ) 08/26/2020 9:46 AM EDT Body Mass Index 40.47 08/26/2020 9:46 AM EDT Plan of Treatment Health Maintenance Due Date Last Done Comments Adult Td,Tdap Booster 1965 LIPID PANEL 1966 DEPRESSION SCREENING 1978 HEPATITIS C SCREENING 1984 HIV ONE-TIME SCREENING (18-6 5 YEARS) 1984 COLOGUARD 09/16/2011 COLONOSCOPY 09/16/2011 COLORECTAL CANCER SCREENING 09/16/2011 FIT TEST 09/16/2011 FOBT 09/16/2011 SIGMOIDOSCOPY 09/16/2011 VIRTUAL COLONOSCOPY 09/16/2011 PNEUMOCOCCAL VACCINES (50+ years) (1 of 1 - PCV) 2016 ZOSTER VACCINES (1 of 2) 2016 MAMMOGRAM 06/06/2022 06/06/2020 PAP SMEAR 08/27/2023 08/26/2020, 04/20/2016 INFLUENZA VACCINE (#1) 2024 7, 01/18/2016 COVID-19 VACCINE (3 - 2024-2 6 season) 2024 07/28/2020, 06/28/2020 SMOKING STATUS SCREENING (On ce After 26 Yrs) Completed 08/26/2020 HEPATITIS A VACCINES Aged Out No long er eligible based on patient's age to complete this topic HIB VACCINES Aged Out No longer eligi ble based on patient's age to complete this topic MENINGOCOCCAL VACCINES (ACWY) Aged Out No longer eligible based on patient's age to complete this topic MENINGOCOCCAL VACCINES (B) Aged Out N o longer eligible based on patient's age to complete this topic Medical Devices Not on file Procedures Procedure Name Priority Date/Time Associated Diagnosis Comments PAP TEST Routine 08/26/2020 12:00 AM EDT HM MAMMOGRAPHY Routine 06/06/2020 from Last 3 Months or Most Recently Relevant to Health Maintenance Results * Pap Smear (08/26/2020 12:00 AM EDT) 08/26/2020 08/27/2020 9:2 9 AM EDT Narrative SEE NARRATIVE - 09/03/2020 4:48 [place] [address] Development Analyst: Galilea Larsen MD COMMUNICATION SPECIALIST Cytology Report FINAL DIAGNOSIS A. PAP SMEAR (SUREPATH) CE: SPECIMEN ADEQUACY: Satisfactory for evaluation; transformation zone present. INTERPRETATION: NEGATIVE FOR INTRAEPITHELIAL LESION OR MALIGNANCY. Electronically Signed Out By: Karlee Yu MD By his/her signature above, the pathologist listed as making the Final Diagnosis certifies that he/she has personally reviewed this case and confirmed or corrected the diagnosis. The Pap test is a screening test primarily for squamous cancers and precursors and has associated false-negative and false-positive results. New technologies such as liquid-based preparations may decrease but will not eliminate all false-negative results. Regular sampling and follow-up of unexplained clinical signs and symptoms are recommended to minimize false negative results. PROCEDURES/ADDENDA HPV Testing (Requested) Ordered Date: 08/27/2020 A. PAP SMEAR (SUREPATH) CE: Human Papilloma Virus Test Negative for high-risk human papillomavirus types 16, 18, 45 and the Other high risk probe set (Includes 31, 33, 35, 39, 51, 52, 56, 58, 59, 66, 68) by [employer] HR-HPV analysis. Clinical correlation is advised. This HPV test was performed at [facility], [address] [place] [address]. This test has been FDA approved for SurePath cervical cytology specimens. The accuracy and precision of this test for all other specimen sources has been verified in the Cytopathology Laboratory of the [facility] and has not been cleared or approved by the U.S. Food and Drug Administration. Clinical correlation is advised. CLINICAL HISTORY Date of Last Menstrual Period: Not Provided Menstrual History: Unknown Other Clinical Conditions: Screening Pap SPECIMEN SOURCE A: PAP SMEAR (SUREPATH) CE Patient Name: JORI RUGGIERO : 1965 (Age: 54) Sex: F Institution: [facility] Location: [facility] Date of Collection: 08/26/2020 Date of Reported: 09/03/2020 16:48 Results to: Samira Maurer MD Samira Maurer MD CYTOLOGY ORDERABLES Final Result SEE NARRATIVE * MAMMOGRAPHY FOR RESULT ENTRY ONLY (06/06/2020) Historical Provider HEALTH MAINTENANCE Final Result from Last 3 Months or Most Recently Relevant to Health Maintenance Insurance [facility] Care Teams Ceramics Machine Operator Relationship Specialty Start Date End Date Diane Licea MD [address] [place] [id number] PCP - General Family Medicine 12/14/17 Additional Source Comments The information contained in this document represents components of the legal health record. It is not the complete legal health record.[facility]
--- OUTSIDE RECORDS SUMMARY | 2024-12-24 09:32 | XMS_ITS | Clinical Summary ---
Author Organization [facility] [address] [facility] Address [address] [place] [address] Phone Care Team Providers Care Retail Coordinator Name Role Phone Karyn Arreaga DO Primary Care Provider [phone] Medications atorvastatin (LIPITOR) 10 mg tablet Take 1 tablet (10 mg total) by mouth. at bedtime. 5 Active losartan-hydroC HLOROthiazide (HYZAAR) 50-12.5 mg per tablet Take 1 tablet by mouth 1 (one) time each day. 5 Active FreeStyle Lancets 28 gauge lancets DIRECTED THREE TIMES DAILY 5 Active Mounjaro 2.5 mg/0.5 mL injection ADMINISTER 2.5 MG UNDER THE SKIN EVERY WEEK FOR 4 WEEKS 5 Active Social History Tobacco Use Types Packs/Day Years Used Date Smoking Tobacco: Never Assessed Comments Unknown Sex and Gender Information Value Date Recorded Sex Assigned at Female 08/02/2024 1:02 PM EDT Legal Sex Female 10:09 PM EST Gender Identity Female 08/02/2024 1:02 PM EDT Sexual Orientation Not on file Last Filed Vital Signs Vital Sign Reading Time Taken Comments Blood Pressure - - Pulse - - Temperature - - Respiratory Rate - - Oxygen Saturation - - Inhaled Oxygen Concentration - - Weight 114 kg (252 lb) 09/02/2024 10:18 AM EDT Height 170.2 cm (5' 7 ) 09/02/2024 10:18 AM EDT Body Mass Index 39.47 09/02/2024 10:18 AM EDT Plan of Treatment Health Maintenance Due Date Last Done Comments Breast Cancer Screening 1965 Diabetes: Annual GFR (Glomerular Filtration Rate) 1966 Diabetes: Annual Foot Exam 1976 Diabetes: Annual Retina Eye Exam 1976 Hepatitis B Vaccines (1 of 3 - 19+ 3-dose series) 1985 Cervical Cancer Screening: Pap Smear 09/16/1987 Zoster Vaccines (2 of 2) 08/12/2023 06/17/2023 Depression Screening 03/27/2024 Cholesterol Screening (Lipid Panel) 08/02/2024 HIV Screening 08/02/2024 Hepatitis C Screening 08/02/2024 Social Influencers of Health Screening 08/02/2024 Diabetes: Annual Urine Albumin-Creatinine Ratio (uACR) 09/02/2024 Diabetes: Blood Sugar Control Test (HGBA1C) 09/02/2024 Hypertension/CHF/CAD Annual BMP Blood Test 09/02/2024 COVID-19 Vaccine ( season) 2024 03/18/2021, 07/28/2020, 06/28/2020 Influenza Vaccine (#1) 2024 2, 12/23/2019, 12/29/2016, Additional history exists DTaP,Tdap,and Td Vaccines (3 - Td or Tdap) 04/14/2027 04/14/2017, 03/27/2005 Colorectal Cancer Screening: Colonoscopy 09/12/2034 09/12/2024 Pneumococcal Vaccine: 50+ Years Completed 02/27/2023 HIB Vaccines Aged Out No longer eligi [...] to complete this topic RSV Immunization Patients Under 20 months Aged Out No longer eligible based on patient's age to complete this topic Varicella Vaccines Aged Out No longer eligible based on patient's age to complete this topic Procedures Procedure Name Priority Date/Time Associated Diagnosis Comments EXTERNAL COLONOSCOPY REPORT Routine 09/12/2024 11:56 AM EDT from Last 3 Months or Most Recently Relevant to Health Maintenance Results * External Colonoscopy Report (09/12/2024 11:56 AM EDT) Anatomical Region Laterality Modality Endoscopy us Historical Provider GI~PROCEDURE ORDERABLES F inal Result from Last 3 Months or Most Recently Relevant to Health [place] [id number] [facility] Care Teams Retail Coordinator Relationship Specialty Start Date End Date Karyn Arreaga DO [address] [place] [address] PCP - General Internal Medicine 06/13/16
[2024-12-24 10:33] LABS: Appearance Urine Hazy; Glucose Urine UA Negative (Negative); PH 6.0 (5.0-9.0); Specific Gravity - Urine 1.020 (1.005-1.025)
[2024-12-24 10:40] LABS: MANUAL DIFF FLAG NO
[2024-12-24 10:47] LABS: Hematocrit 44.8 % (37.0-47.0); Hemoglobin 15.9 g/dl (12.0-16.0); Imm Gran Abs Auto 0.01 X10*3/uL (0.00-0.03); Imm Gran Pct Auto 0.2 % (0.0-0.4); Lymphocytes Absolute Auto 1.6 X10*3/uL (1.2-4.9); Mean Corpuscular HGB Conc 35.5 g/dl (31.0-35.0); Mean Corpuscular Hemoglobin 29.7 pg (27.0-33.0); Mean Corpuscular Volume 83.6 fL (80.0-98.0); NRBC Abs Auto 0.000 X10*3/uL (0.0-0.012); NRBC Pct Auto 0.0 /100WBC (0.0-0.2); Platelet Count 225 X10*3/uL (160-400); Red Blood Count 5.36 X10*6/uL (4.20-5.50); White Blood Count 5.1 X10*3/uL (4.8-10.8)
[2024-12-24 10:57] LABS: Microalbum/Creatinine Ratio Ur 5.6 ug/mg cr (<30)
[2024-12-24 11:25] LABS: Alanine Aminotransferase 46 U/L (0-31); Albumin Level 4.5 g/dL (3.5-5.0); Alkaline Phosphatase 54 U/L (39-117); Anion Gap 12 (12-20); Aspartate Amino Transferase 42 U/L (5-31); Blood Urea Nitrogen 12 mg/dL (9-16); Calcium 9.4 mg/dL (8.4-10.2); Carbon Dioxide 29 mmol/L (22-29); Chloride 101 mmol/L (96-108); Cholesterol 100 mg/dL (<200); Estimated Glomerular Filt Rate > 60; HDL Cholesterol 40 mg/dL (>40); Potassium 3.4 mmol/L (3.3-5.1); Sodium 139 mmol/L (135-145); Total Protein 7.5 g/dL (6.5-8.0); Triglycerides 81 mg/dL (<150)
== END 2024-12-24 08:57 | disposition home or self-care (01) ==
LOC: HO.HMGCLDS 08:56
PROVIDERS: PCP Nurse Practitioner Family; Visit Provider Nurse Practitioner Family
DX: E11.9 Type 2 diabetes mellitus without complications (principal)
CPT/HCPCS: 36415; 80053; 80061; 81003; 82043; 82570; 84443; 85025

== ENCOUNTER 2024-12-25 13:15 | Outpatient (AMB) | payer OTHER, SELFPAY ==
--- NOTE | 2024-12-25 13:20 | MHC.PC.OV ---
Vital Signs 12/25/24 13:21 Height 5 ft 7 in Weight 248 lb BMI 38.8 BP 124/82 Blood Pressure Location Lt brachial Position Sitting Respiration 16 Pulse 74 Pulse Source Pulse Oximeter Temp 98.3 F Temp Source Oral Pulse Oximetry (%) 96 Oxygen Delivery Method Room Air Intake Visit Reasons: 4 months f/up a1c Java Application Developer Required: No Accompanied by: Self / Same As Patient Allergies Penicillins Allergy (Verified 12/25/24 14:14) Unknown Medication List - Last Reconciled 12/25/24 by CLAIRE Soares- Alcohol Prep Pads (alcohol swabs) 1 topically TID; NS atorvastatin 10 mg PO BEDTIME FreeStyle Lancets (lancets) TID testing NS FreeStyle Lite Meter (blood-glucose meter) test Tid NS FreeStyle Lite Strips (blood sugar diagnostic) test TID NS losartan-hydrochlorothiazide 50-12.5 mg 1 tab PO DAILY tirzepatide 5 mg (0.5 mL) subcut QWEEK Tobacco use date assessed: 12/25/24 Dental Screening Dental Screen Date: 12/25/24 Did you have a dental visit in the last 12 months?: Yes Did you have a dental problem in the last 6 months where you did not have access to dental care?: No Was dental information given to patient?: Patient has dentist HPI 4 months f/up a1c HPI Details Chief Complaint The patient presents for a follow-up on diabetes management. History of Present Illness The patient is a 59-year-old female presenting with a follow-up for diabetes management. She is currently on Mounjaro and reports doing well with this medication, expressing no desire to increase the dosage. Her hemoglobin A1c is 5.8, indicating good glycemic control. The patient denies experiencing neuropathy, polyuria, polydipsia, chest pain, or dyspnea. She has positive sensation in her feet as confirmed by the monofilament test, and her feet are intact. Recent laboratory results indicate elevated liver enzymes, although they are trending downward. Her LDL cholesterol level is 44, which is considered optimal. The patient is also experiencing weight loss and reports feeling better overall. fatigue/snoring: will refer to sleep medicine Social History Health Maintenance - Eye exam is up to date Review of Systems - Neurological: Denies neuropathy - Endocrine: Denies polyuria, polydipsia - Cardiovascular: Denies chest pain - Respiratory: Denies dyspnea Physical Exam General: Cooperative, healthy appearing, comfortable, no acute distress and well developed, obese Orientation: Patient oriented x3 Limitations: No limitations Head: Normal to inspection Ears: Hearing grossly normal bilaterally Nose: Normal external nose present Face and sinus: Normal facial exam Eyes: Appearance normal, both eyes and all related structures Neck: Normal visual inspection and Yes full ROM Respiratory: Normal respiratory effort and able to speak in complete sentences. Clear to auscultation bilaterally Cardiovascular: Regular rate and rhythm. Normal S1 and S2 GI: Normal to inspection. Soft to palpation and nontender Skin: No rashes or lesions noted Neuro: Patient oriented x3, positive sensation with use of monofilament to feet, feet intact Extremities: Normal to inspection, feet were intact Results - Labs: Hemoglobin A1c is 5.8 - Labs: LDL cholesterol level is 44 - Labs: Elevated liver enzymes, trending downward Plan 1. Diabetes Mellitus The patient is currently managing her diabetes with Mounjaro and is achieving good glycemic control with a hemoglobin A1c of 5.8. She does not wish to increase her medication dosage at this time. 2. Elevated Liver Enzymes Recent labs show elevated liver enzymes, but they are decreasing, indicating potential improvement. 3. snores/fatigue: referring to sleep medicine Discussion Notes Patient Instructions [facility] Surgical History Hx of tonsillectomy History of cholecystectomy History of total left hip replacement Family History Mother Substance use disorder Mental health disorder Social History Housing: House Patient Tobacco Use Status: Never used Tobacco e-Cigarette/Vaping Use: Never Used Second Hand Smoke Exposure: No service: No Current occupational status: employed Current occupation: [employer] Current occupational exposures/hazards: No Cognitive needs: No Hearing needs: No Vision needs: Yes Questionnaire PHQ-9 Over the last 2 weeks, how often have you been bothered by any of the following problems? 1. Little interest or pleasure in doing things: not at all 2. Feeling down, depressed, or hopeless: not at all 3. Trouble falling or staying asleep, or sleeping too much: not at all 4. Feeling tired or having little energy: not at all 6. Feeling bad about yourself - or that you are a failure or have let yourself or your family down: not at all 7. Trouble concentrating on things, such as reading the newspaper or watching television: not at all 8. Moving or speaking so slowly that other people could have noticed. Or the opposite - being so fidgety or restless that you have been moving around a lot more than usual: not at all 9. Thoughts that you would be better off or of hurting yourself in some way: not at all Depression Screening Interpretation: Negative Depression Screening Done: Yes 72061 - PHQ-9 Billing: Yes Source: Developed by Drs. Ever Osborn, Earline Ibarra, Flaquito Schmitz and colleagues, with an educational jessica from [employer]. Thrive Questionnaire Date Thrive assessed: 10/18/23 I am a: Patient What is your living situation today?: I have a steady place to live Within the past 12 months, did the food you bought not last and you didn't have the money to get more?: Never true Within the past 12 months, did you worry whether your food would run out before you got money to buy more?: Never true Do you have trouble paying for medicines?: No Do you have trouble getting transportation to medical appointments?: No Do you have trouble paying your heating and electricity bill?: No Do you have trouble taking care of your child, family member or friend?: No Do you have trouble with day-to-day activities such as bathing, preparing meals, shopping, managing finances, etc.?: No Are you currently unemployed and looking for a job?: No Are you interested in more education?: No Please select the resources that you would like help with: None Currently or been in a relationship where the following occur: No concerns reported THRIVE Score: 0 CON-7 AMB Questionnaire CON-7 Date CON - 7 assessed: 12/25/24 Feeling nervous, anxious, or on edge: 0 = Not at all Not being able to stop or control worryin = Not at all Worrying too much about different things: 0 = Not at all Trouble relaxin = Not at all Being so restless that it is hard to sit still: 0 = Not at all Becoming easily annoyed or irritable: 0 = Not at all Feeling afraid as if something awful might happen: 0 = Not at all Total CON-7 score (0-4 normal; 5-9 mild; 10-14 moderate; 15-21 severe): 0 Source: Developed by Drs. Ever Osborn, Earlien Ibarra, Flaquito Schmitz and colleagues, with an educational jessica from [employer]. CON-7 Assessment Billing CON-7 Assessment Tool: CON-7 Assessment 59584 Physical exam (Primary Care) Vital Signs: Last Vital Signs Temp 98.3 F 12/25/24 13:21 Pulse 74 12/25/24 13:21 Resp 16 12/25/24 13:21 BP 124/82 12/25/24 13:21 Pulse Ox 96 12/25/24 13:21 Oxygen Delivery Method Room Air 12/25/24 13:21 BMI result Body Mass Index 38.8 Tobacco/Smoking Status: Tobacco use Status Tobacco use date assessed 12/25/24 12/25/24 13:26 Patient Tobacco Use Status Never used Tobacco 12/25/24 13:23 e-Cigarette/Vaping Use Never Used 12/25/24 13:23 Depression Screening Interpretation: Negative Thrive Assessment: Date of Thrive Assessment Date Thrive assessed 10/18/23 12/25/24 13:23 Currently or been in a relationship where the following occur: No concerns reported Coding Level of Care Code Est Pt Level 3 (67370) Diagnoses Diabetes E11.9 Elevated liver enzymes R74.8 Fatigue R53.83 Snoring R06.83 Additional Codes CON-7 Assessment Billing - CON-7 Assessment Tool: CON-7 Assessment 39404 ([id number]) PHQ-9 - 87441 - PHQ-9 Billing: Yes ([id number]) Assessment & Plan Assessment & Plan (1) Diabetes: Code(s): E11.9 - Type 2 diabetes mellitus without complications Category: Medical (2) Elevated liver enzymes: Code(s): R74.8 - Abnormal levels of other serum enzymes Category: Medical (3) Fatigue: Code(s): R53.83 - Other fatigue Category: Medical (4) Snoring: Code(s): R06.83 - Snoring Category: Medical Plan . Orders: Referrals Sleep Medicine Referral R06.83 - Snoring, R53.83 - Other fatigue
[2024-12-25 13:21] VITALS: BP 124/82; PULSE 74; RESP 16; TEMP 36.8; O2SAT 96; BMI 38.8
--- OUTSIDE RECORDS SUMMARY | 2024-12-25 14:28 | XMS_ITS | Clinical Summary ---
Author Organization [facility] [address] [facility] Address [address] [place] [address] Phone Care Team Providers Care Ceo Ziff Davis Name Role Phone Karyn Arreaga DO Primary Care Provider [phone]- [phone] Medications atorvastatin (LIPITOR) 10 mg tablet Take [...] 03/18/2021, 07/28/2020, 06/28/2020 Influenza Vaccine (#1) 2024 , 12/23/2019, 12/29/2016, Additional history exists DTaP,Tdap,and Td Vaccines (3 - Td or Tdap) 04/14/2027 04/14/2017, 03/27/2005 Colorectal Cancer Screening: Colonoscopy 09/12/2034 09/12/2024 RSV Immunization Adult Patients (1 - 1-dose 75+ series) 2041 Pneumococcal Vaccine: 50+ Years Completed 02/27/2023 HIB [...] Most Recently Relevant to Health Maintenance Insurance [facility] Care Teams Ceo Ziff Davis Relationship Specialty Start Date End Date Karyn Arreaga DO [address] [place] [phone] PCP - General Internal Medicine 06/13/16
--- OUTSIDE RECORDS SUMMARY | 2024-12-25 14:28 | XMS_ITS | Clinical Summary ---
Author Organization [facility] Address [address] [place] [phone] Phone Care Team Providers Care Facs Teacher Name Role Phone Diane Licea MD Primary [...] SEE NARRATIVE - 09/03/2020 4:48 [place] [address] Infant Toddler Lead Teacher: Galilea Larsen MD INSURANCE LOSS ADJUSTER Cytology Report FINAL DIAGNOSIS A. PAP SMEAR [...] 52, 56, 58, 59, 66, 68) by [employer] HR-HPV analysis. Clinical correlation is advised. This HPV test was performed at [facility] [place], [address] [place] [address]. This test has been FDA approved for SurePath cervical cytology specimens. The accuracy and precision of this test for all other specimen sources has been verified in the Cytopathology Laboratory of the [facility] [place] and has not been cleared or approved by the U.S. Food and Drug Administration. Clinical correlation is advised. CLINICAL HISTORY Date of Last Menstrual Period: Not Provided Menstrual History: Unknown Other Clinical Conditions: Screening Pap SPECIMEN SOURCE A: PAP SMEAR (SUREPATH) CE Patient Name: JORI RUGGIERO : 1965 (Age: 54) Sex: F Institution: [facility] Location: [facility] Date of Collection: 08/26/2020 Date of Reported: 09/03/2020 16:48 Results to: Samira Maurer MD Samira Maurer MD CYTOLOGY ORDERABLES Final Result SEE NARRATIVE * MAMMOGRAPHY FOR RESULT ENTRY ONLY (06/06/2020) Historical Provider HEALTH MAINTENANCE Final Result from Last 3 Months or Most Recently Relevant to Health Maintenance Insurance [facility] Care Teams Facs Teacher Relationship Specialty Start Date End Date Diane Licea MD [address] [place] [id number] PCP - General Family Medicine 12/14/17 Additional Source Comments The information contained in this document represents components of the legal health record. It is not the complete legal health record.[facility]
== END 2024-12-25 14:17 | disposition home or self-care (01) ==
LOC: HO.HMCC 13:16
PROVIDERS: PCP Nurse Practitioner Family; Visit Provider Nurse Practitioner Family
DX: E11.9 Type 2 diabetes mellitus without complications (principal); R74.8 Abnormal levels of other serum enzymes; R53.83 Other fatigue; R06.83 Snoring; Z13.9 Encounter for screening, unspecified

== ENCOUNTER → 2024-12-25 13:15 | Outpatient (BNVA) | payer OTHER, SELFPAY | PROVIDERS: PCP Nurse Practitioner Family; Visit Provider Nurse Practitioner Family | DX: E11.9 Type 2 diabetes mellitus without complications (principal); R06.83 Snoring; R53.83 Other fatigue; R74.8 Abnormal levels of other serum enzymes; Z79.899 Other long term (current) drug therapy | CPT/HCPCS: 83036; 96127 ==

== ENCOUNTER 2025-02-12 10:36 | Outpatient (AMB) | payer OTHER, SELFPAY ==
--- NOTE | 2025-02-12 10:40 | A.OFFVIS_ITS ---
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 snores/fatigue. No hard time falling asleep/staying asleep. Snoring/apnea/gasping. Goes to bed at 10pm wakes up at 5am. Wakes up once per night. Naps on weekends 1hr. No headaches. No history of sleep studies. Accompanied by: Self / Same As Patient Allergies Penicillins Allergy (Verified 02/12/25 10:43) Unknown HPI Comments Details: 59 year old female is here for an evaluation of BAMBI, she is referred to us by her PCP, Dr. Parker. She stops breathing at night per her partner, she snores loudly and has one arousal at 3am, she is able to fall back asleep. She works for a [employer], and works 9-6pm without lunches. She snacks through out the day. She moves a lot at night has r>l leg cramps, and in her hands bilaterally which cause her to jump out of bed to stretch her calves. She has RLS with pins, needles, tingling, denies sensory changes. She has gait and balance difficulties with shuffling of the feet intermittently, though not bothersome. She had a l hip replacement [address] Lorenz and quickly recovered. Memory is foggy, slow to recall words, gets overwhelmed easily. Mood is temperamental. She has concerns of sensory hearing loss. She denies morning headaches, acid reflux, denies parasomnias, flailing or thrashing behavior. She has lost 30lbs on Tirzepatide 5mg subq. Diet is okay. Denies smoking, drinks socially, is not physically active, drinks plenty of water daily. FH +Mom 80, lung cancer, dad passed 59 colon cancer. [facility] Surgical History Hx of tonsillectomy History of cholecystectomy History of total left hip replacement Family History Mother Substance use disorder Mental health disorder Social History Housing: House Patient Tobacco Use Status: Never used Tobacco e-Cigarette/Vaping Use: Never Used Second Hand Smoke Exposure: No service: No Current occupational status: employed Current occupation: [employer] Current occupational exposures/hazards: No Cognitive needs: No Hearing needs: No Vision needs: Yes Physical Exam Vital Signs: Last Vital Signs Pulse 78 02/12/25 10:41 BP 120/84 02/12/25 10:41 Pulse Ox 97 02/12/25 10:41 Oxygen Delivery Method Room Air 02/12/25 10:41 BMI result Body Mass Index 35.6 Const General: cooperative, comfortable and no acute distress Nutritional Appearance: overweight Orientation/consciousness: patient oriented x3 HEENT Face and sinus: Yes face symmetric Teeth and gingiva: other (mallampti score is 4) Eyes Pupils: Equal, round and reactive pupils present Neck Neck: Yes full ROM Resp Effort & Inspection: normal respiratory effort and able to speak in complete sentences Neuro General: patient oriented x3 and moves all extremities Cranial nerves: Yes Equal, round and reactive pupils present, Yes Normal accommodation reflex present, Yes Normal facial strength present, Yes Ability to bilaterally rotate head present and Yes Ability to bilaterally elevate shoulders present Cognition (Neuro): normal cognition Gait exam (Neuro): Normal gait present Motor exam (neuro): 5/5 motor strength present throughout and Normal motor muscle tone present throughout Psych Appearance: grossly normal Mental Status: mental status grossly normal Attitude: cooperative Thought process: Normal thought process present Results Reviewed Results Reviewed: Labs reviewed with pt. Assessment & Plan Assessment & Plan (1) Excessive daytime sleepiness: Code(s): G47.19 - Other hypersomnia Category: Medical (2) RLS (restless legs syndrome): Code(s): G25.81 - Restless legs syndrome Category: Medical Plan HST r/o bambi RLS symptoms will monitor and start gabapentin at next appt if pt requests. May use magnesium 200-400mg po daily at night and RLS cream topically if persistent difficulty staying asleep. Labs reviewed with pt. F/u in 3 months. Patient Instructions: Sleep Hygiene provided: set a scheduled bedtime and wake time to help regulate the circadian rhythm and balance the release of pituitary hormones. Sleep in a dark room, temperatures below 68 degrees, and no devices n bed. Limit caffeinated products 6 hours prior to bed, and limit fluids 2-4 hours prior to bed. Gentle night yoga, diffusing essential oils, and playing soft music can be relaxing. Coding Level of Care Code New Pt Level 4 (74273) Diagnoses Excessive daytime sleepiness G47.19 RLS (restless legs syndrome) G25.81
[2025-02-12 10:41] VITALS: BP 120/84; PULSE 78; O2SAT 97; BMI 35.6
--- OUTSIDE RECORDS SUMMARY | 2025-02-12 20:40 | XMS_ITS | Clinical Summary ---
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 PAP SMEAR [...] 52, 56, 58, 59, 66, 68) by [facility] On[facility]arity HR-HPV analysis. Clinical correlation is advised. This HPV test was performed at [facility], [address] [place] [address]. This test has been FDA approved for [facility] cervical cytology specimens. The accuracy and precision of this test for all other specimen sources has been verified in the Cytopathology Laboratory of the [facility] and has not been cleared or approved by the U.S. Food and Drug Administration. Clinical correlation is advised. CLINICAL HISTORY Date of Last Menstrual Period: Not Provided Menstrual History: Unknown Other Clinical Conditions: Screening Pap SPECIMEN SOURCE A: PAP SMEAR (SUREPATH) CE Patient Name: JORI RUGGIERO : 1965 (Age: 54) Sex: F Institution: [facility] Location: [facility] Date of Collection: 08/26/2020 Date of Reported: 09/03/2020 16:48 Results to: Samira Maurer MD Samira Maurer MD CYTOLOGY ORDERABLES Final Result SEE NARRATIVE * MAMMOGRAPHY FOR RESULT ENTRY ONLY (06/06/2020) Historical Provider HEALTH MAINTENANCE Final Result from Last 3 Months or Most Recently Relevant to Health Maintenance Insurance [place] [id number] [facility] POS [facility] H[facility] POS Care Teams Chef Relationship Specialty Start Date End Date Diane Licea MD [address] [place] [phone] PCP - General Family Medicine 12/14/17 Additional Source Comments The information contained in this document represents components of the legal health record. It is not the complete legal health record.[facility]
--- OUTSIDE RECORDS SUMMARY | 2025-02-12 20:40 | XMS_ITS | Clinical Summary ---
Author Organization [facility] [address] [facility] Address [address] [place] [address] Phone Care Team Providers Care Gauge Operator Name Role Phone Karyn Arreaga DO Primary Care Provider [phone] Medications atorvastatin (LIPITOR) 10 mg tablet Take [...] Most Recently Relevant to Health Maintenance Insurance [facility] Care Teams Gauge Operator Relationship Specialty Start Date End Date Karyn Arreaga DO [address] [place] [phone] PCP - General Internal Medicine 06/13/16
== END 2025-02-12 11:22 | disposition home or self-care (01) ==
LOC: HO.HSMC 10:36
PROVIDERS: PCP Nurse Practitioner Family; Visit Provider Physician Assistant Medical
DX: G47.19 Other hypersomnia (principal); G25.81 Restless legs syndrome
CPT/HCPCS: 99204